=== PATIENT | female | born 1970 | race Caucasian/White ===

== ENCOUNTER 2018-05-29 05:05 | Day surgery (SDC) | payer OTHER ==
[2018-05-25 16:47] VITALS: BMI 38.6
[2018-05-29] MEDS ORDERED: PROPOFOL 20 ML ONE ×3 (09:22→09:43)
[2018-05-29] MEDS ORDERED: MIDAZOLAM HCL 2 MG/2 ML SINGLE DOSE VIAL ONE (09:23)
[2018-05-29] MEDS ORDERED: LIDOCAINE HCL/PF 2% SDV 5ML VIAL ONE (09:24)
--- NOTE | 2018-05-29 09:32 | HP ---
History & Physical Update - History History: No Change (h&P reviwed , no changes for hysteroscopy D&C polypectomy) - Physical Physical: No Change - Assessment Assessment: No Change - Plan Plan: No Change
[2018-05-29] MEDS ORDERED: oxyCODONE HCL 5 MG TABLET PO PRN ×2 (09:34→10:12)
[2018-05-29] MEDS ORDERED: IBUPROFEN 800 MG/8 ML IJ IVPB PRN (09:34)
[2018-05-29] MEDS ORDERED: ONDANSETRON 4 MG/2 ML VIAL IVPUSH PRN ×2 (09:34→10:12)
[2018-05-29] MEDS ORDERED: IBUPROFEN 600 MG TABLET (FP) PO PRN (09:34)
[2018-05-29] MEDS ORDERED: ELECTROLYTE-148 SOLN 1,000 ML IV SCH (09:45)
[2018-05-29] MEDS ORDERED: DEXAMETHASONE SOD PHOSPHATE 4 MG/1 ML VIAL ONE (09:46)
[2018-05-29] MEDS ORDERED: KETOROLAC TROMETHAMINE 30 MG/1 ML VIAL ONE (10:01)
[2018-05-29] MEDS ORDERED: PROMETHAZINE HCL 25 MG/1 ML VIAL IVPUSH PRN (10:12)
[2018-05-29] MEDS ORDERED: LACTATED RINGERS SOLUTION 1,000 ML IV SCH (10:15)
[2018-05-29 11:07] VITALS: TEMP 98
--- NOTE | 2018-05-29 11:48 | OP ---
DATE OF OPERATION: 05/29/2018 PREOPERATIVE DIAGNOSIS: Menometrorrhagia, endometrial polyp. POSTOPERATIVE DIAGNOSIS: Menometrorrhagia, endometrial polyp. PROCEDURE: Hysteroscopy, dilation and curettage, and polypectomy. SURGEON: Leandro Shell MD ANESTHESIA: General anesthesia, Ney Manriquez MD. ESTIMATED BLOOD LOSS: 25 mL. DESCRIPTION OF PROCEDURE: Patient was taken to the operating room. Under adequate general anesthesia in the lithotomy position, examination under anesthesia revealed the external genitalia to be normal. There was a cystocele. The cervix was clean, no gross lesion. Uterus was normal sized. Adnexa, no masses were palpable. Then with the weighted speculum in the vagina, anterior lip of cervix was grasped with single-tooth tenaculum. Cervix was slightly dilated with Hegar dilator. Hysteroscope was introduced. Visualization of endocervical canal appeared to be normal. Endometrium was visualized. Hysteroscope was further introduced into the uterine cavity, and both cornu regions of the uterus were identified and tubal ostia were visualized. There were 2 polyps in the lower uterine segment approximately 1-2 cm. The endometrium was irregular, with patchy endometrial growth. No submucous myoma noted. Then the polyps were removed, and then then D&C was done. Patient tolerated the procedure well, left the OR in good condition. LEANDRO SHELL M.D. [id number]
[2018-05-29 12:29] VITALS: BP 117/75; PULSE 81
--- NOTE | 2018-05-30 15:14 | PATH ---
Surgical Pathology Report Patient Name: AMA SÁNCHEZ [facility]. Rec. #: [id number] /Age/Gender: 1970 (Age: 47) / F Account: [id number] Location: [facility] SURGICAL Taken: 05/29/2018 Received: 05/29/2018 Reported: 05/30/2018 Physicians: Leandro Shell M.D. Specimen(s) Received A: ENDOMETRIUM POLYP B: ENDOMETRIAL CURETTINGS Clinical History Irregular menses, endometrium thickened Final Diagnosis A. ENDOMETRIAL POLYP, POLYPECTOMY: FRAGMENTS OF ENDOMETRIAL POLYP. B. ENDOMETRIAL CURETTINGS, DILATION AND CURETTAGE: FRAGMENTS OF ENDOMETRIAL POLYP, PROLIFERATIVE ENDOMETRIUM, AND SCANT BENIGN CERVICAL TISSUE. Electronically Signed Gissell Goode M.D. Gross Description A. Received in formalin labeled "endometrial polyp" are multiple fragments of pink-mckeon polypoid tissue measuring 3 x 2.5 x 1 cm in aggregate. The entire specimen is submitted in one cassette. B. Received in formalin labeled "endometrial curettings" are multiple fragments of pink-mckeon hemorrhagic tissue measuring 3.5 x 3.5 x 1.5 cm in aggregate. The entire specimen is submitted in 2 cassettes. [facility]/05/29/2018 [facility]/05/29/2018
== END 2018-05-29 12:30 | disposition home or self-care (01) ==
LOC: JASU-SURG 05:05
PROVIDERS: ATTEND Obstetrics & Gynecology
PROC: 0UJD8ZZ Inspection of Uterus and Cervix, Via Natural or Artificial Opening Endoscopic (ICD-10-PCS; 2018-05-29)
PROC: 0UB97ZX Excision of Uterus, Via Natural or Artificial Opening, Diagnostic (ICD-10-PCS; principal; 2018-05-29 10:00)
PROC: 0UDB7ZX Extraction of Endometrium, Via Natural or Artificial Opening, Diagnostic (ICD-10-PCS; 2018-05-29 10:00)
DX: N92.1 Excessive and frequent menstruation with irregular cycle (principal); N84.0 Polyp of corpus uteri
CPT/HCPCS: 84703; 88305-TC; 94760

== ENCOUNTER 2018-08-12 08:20 | Emergency (ER) | payer OTHER ==
[2018-08-12 08:30] VITALS: BMI 38.6
[2018-08-12 09:33] LABS: BASO % 0.9 % (0-2.0); EOS % 0.3 % (0-4.5); HEMATOCRIT 37.9 % (32.4-45.2); HEMOGLOBIN 12.6 GM/dL (10.7-15.3); LYMPH % 7.2 % (8-40); MCH 27.7 pg (25.7-33.7); MCHC 33.2 g/dl (32.0-36.0); MEAN CELL VOLUME 83.5 fl (80-96); MEAN PLT VOLUME 8.5 fl (7.5-11.1); MONO % 3.5 % (3.8-10.2); NEUT % 88.1 % (42.8-82.8); PLATELET COUNT 284 K/MM3 (134-434); RBC 4.54 M/mm3 (3.60-5.2); RDW 14.1 % (11.6-15.6); WHITE BLOOD COUNT 9.1 K/mm3 (4.0-10.0)
[2018-08-12 09:47] LABS: INR 1.07 (0.83-1.09); PROTHROMBIN TIME (PATIENT) 12.6 SEC (9.7-13.0)
[2018-08-12 09:50] LABS: ALBUMIN 3.7 g/dl (3.4-5.0); ALK PHOS 68 U/L (45-117); ANION GAP 5 MMOL/L (8-16); BILIRUBIN,TOTAL 0.5 mg/dL (0.2-1); BLOOD UREA NITROGEN 10 mg/dL (7-18); CALCIUM 8.9 mg/dL (8.5-10.1); CHLORIDE 107 mmol/L (98-107); CO2 27 mmol/L (21-32); CREATININE 0.7 mg/dL (0.55-1.3); GLUCOSE,RANDOM 110 mg/dL (74-106); POTASSIUM 3.9 mmol/L (3.5-5.1); SGOT/AST 9 U/L (15-37); SGPT/ALT 17 U/L (13-61); SODIUM 138 mmol/L (136-145); TOT PROT 7.5 g/dl (6.4-8.2)
--- NOTE | 2018-08-12 10:10 | PDOC ---
Attending Attestation - Resident Resident Name: Aaron Mckeon - ED Attending Attestation I have performed the following: I have examined & evaluated the patient, The case was reviewed & discussed with the resident, I agree w/resident's findings & plan, Exceptions are as noted - HPI HPI: 08/12/18 10:07 48 F with no PMH presents to ED with vaginal bleeding. Pt reports that she had a uterine polyp removed by Dr. Shell recently. She had persistent spotting afterwards and was started on medroxyprogesterone, which she finished 4 days ago. Since stopping the medication, she has had increased bleeding, about 4 pads per day. Denies any abdominal pain. Denies lightheadedness/dizziness/CP/SOB /palpitations. Pt reports she is concerned she is becoming anemic because of the bleeding. - Physicial Exam PE: 08/12/18 10:08 GENERAL: Awake, alert, and fully oriented, in no acute distress. HEAD: No signs of trauma EYES: PERRLA, EOMI, sclera anicteric, conjunctiva clear ENT: Auricles normal inspection, hearing grossly normal, nares patent, oropharynx clear without exudates. Moist mucosa NECK: Nontender, no stepoffs, Normal ROM, supple, no lymphadenopathy, JVD, or masses LUNGS: Breath sounds equal, clear to auscultation bilaterally. No wheezes, and no crackles HEART: Regular rate and rhythm, normal S1 and S2, no murmurs, rubs or gallops ABDOMEN: Soft, nontender, normoactive bowel sounds. No guarding, no rebound. No masses EXTREMITIES: Normal range of motion, no edema. No clubbing or cyanosis. No cords, erythema, or tenderness NEUROLOGICAL: Cranial nerves II through XII intact. 5/5 strength and sensation in all extremities, Normal speech, normal gait, normal cerebellar function SKIN: Warm, Dry, normal turgor, no rashes or lesions noted. : Pt refused - Medical Decision Making 08/12/18 10:08 48 F with vaginal bleeding x 4 days. Pt well appearing. Will r/o anemia. Pt refused pelvic exam, but low suspicion for acute pelvic pathology as pt without pain, benign abdominal exam. - Labs 08/12/18 10:10 Labs wnl CBC stable since prior in 05/2018 Repeat HR 90 Pt states that she has a high resting heart rate and admits to feeling very anxious in ED. Pt is well appearing, with normal vitals. Clinically stable for DC at this time. I discussed the physical exam findings, ancillary test results and final diagnoses with the patient. I answered all of the patient's questions. The patient was satisfied with the care received and felt comfortable with the discharge plan and treatment plan. The patient agrees to follow up with the primary care physician within 24-72 hours.
--- NOTE | 2018-08-12 10:18 | PDOC ---
History of Present Illness - General Chief Complaint: Vaginal Bleeding Stated Complaint: VAGINAL BLEED Time Seen by Provider: 08/12/18 09:35 - History of Present Illness Initial Comments: The pt is a 48F w/ no reported PMH who presents for evaluation of persistent vaginal bleeding. The patient reports irregular menses since April. At that time the pt was found to have a uterine polyp which was removed in May. Since then her menses have not returned to her baseline. She notes that she has had approximately 1 month of persistent bleeding/spotting. She was seen by Dr. Zaldivar and was given Lupron which she took for 8 days. She stopped this past and since then has had heavy menses. She reports that she was told this could happen, but is concerned because of how long it has been going on for. Of note, she was evaluated for uterine cancer at the time of her uterine polypectomy and her biopsy was negative. Denies fevers/chills, lightheadedness, dizziness, vision changes, chest pain, SOB, abdominal pain/cramping, N/V/C/D, dysuria, hematuria, or blood in her stool. 08/12/18 10:20 Past History - Past Medical History Allergies/Adverse Reactions: Allergies Allergy/AdvReac Type Severity Reaction Status Date / Time No Known Allergies Allergy Verified 08/15/18 14:03 Home Medications: Ambulatory Orders Acetaminophen [Tylenol -] 500 mg PO PRN 08/13/18 COPD: No - Reproductive History Is Patient Now?: No - Suicide/Smoking/Psychosocial Hx Smoking History: Never smoked Hx Alcohol Use: No Drug/Substance Use Hx: No Substance Use Type: None Review of Systems - Review of Systems Able to Perform ROS?: Yes Comments:: GENERAL/CONSTITUTIONAL: No fever or chills. No weakness HEAD, EYES, EARS, NOSE AND THROAT: No change in vision. No ear pain or discharge. No sore throat CARDIOVASCULAR: No chest pain or shortness of breath RESPIRATORY: Denies cough, hemoptysis GASTROINTESTINAL: No nausea, vomiting, diarrhea or constipation GENITOURINARY: No dysuria, frequency, or change in urination MUSCULOSKELETAL: No joint or muscle swelling or pain. No neck or back pain SKIN: No rash NEUROLOGIC: No headache, vertigo, loss of consciousness, or change in strength/ sensation ENDOCRINE: No increased thirst. No abnormal weight change HEMATOLOGIC/LYMPHATIC: No anemia, easy bleeding, or history of blood clots ALLERGIC/IMMUNOLOGIC: No hives or skin allergy 08/12/18 10:11 Is the patient limited Azerbaijani proficient: No *Physical Exam - Vital Signs Last Vital Signs Temp Pulse Resp BP Pulse Ox 98.4 F 107 H 18 132/87 99 08/12/18 08:21 08/12/18 08:21 08/12/18 08:21 08/12/18 08:21 08/12/18 08:21 - Physical Exam Comments: GENERAL: Awake, alert, and oriented to person/place/time, in no acute distress HEAD: No signs of trauma, normocephalic, atraumatic EYES: PERRLA, EOMI, sclera anicteric, conjunctiva clear ENT: Hearing grossly normal, nares patent, oropharynx clear without exudates. Moist mucosa LUNGS: No distress, speaks full sentences, clear to auscultation bilaterally HEART: Regular rate and rhythm, normal S1 and S2, no murmurs appreciated, peripheral pulses normal and equal bilaterally ABDOMEN: Soft, nontender, normoactive bowel sounds. No guarding, no rebound EXTREMITIES: Normal inspection, Normal range of motion, no edema. No clubbing or cyanosis NEUROLOGICAL: Cranial nerves II through XII grossly intact. Normal speech, normal gait, no focal sensorimotor deficits SKIN: Warm, Dry 08/12/18 10:19 ED Treatment Course - LABORATORY CBC & Chemistry Diagram: 08/12/18 07:17 08/12/18 07:17 - ADDITIONAL ORDERS Additional order review: Laboratory Results 08/12/18 08/12/18 07:17 07:17 PT with INR 12.60 INR 1.07 Sodium 138 Potassium 3.9 Chloride 107 Carbon Dioxide 27 Anion Gap 5 L BUN 10 Creatinine 0.7 Creat Clearance w eGFR 88.57 Random Glucose 110 H Calcium 8.9 Total Bilirubin 0.5 AST 9 L ALT 17 Alkaline Phosphatase 68 Total Protein 7.5 Albumin 3.7 08/12/18 07:17 RBC 4.54 MCV 83.5 MCHC 33.2 RDW 14.1 MPV 8.5 Neutrophils % 88.1 H D Lymphocytes % 7.2 L D Monocytes % 3.5 L Eosinophils % 0.3 Basophils % 0.9 Medical Decision Making - Medical Decision Making The pt is a 48F who presents for evaluation for AUB for approx 1 month w/ associated symptoms of anemia ED Course Lab sent Hgb at baseline Serum preg neg Pt scheduled appointment w/ Dr. Zaldivar tomorrow Plan for D/C w/ [facility] f/u Discharge instructions and return precautions given Pt in agreement and verbalized understanding Dispo: home *DC/Admit/Observation/Transfer Diagnosis at time of Disposition: Menometrorrhagia - Discharge Dispostion Disposition: HOME Condition at time of disposition: Stable Decision to Admit order: No - Referrals Referrals: Leandro Shell MD [Staff Physician] - - Patient Instructions Printed Discharge Instructions: DI for Menorrhagia Additional Instructions: You were seen in the Emergency Department for evaluation of irregular vaginal bleeding. Your hemoglobin was at baseline, and your other labs were unremarkable. Please review the handout provided at discharge. Follow up with Dr. Shell. Return to the Emergency Department if you develop fevers/chills, lightheadedness, dizziness, nausea/vomiting, abdominal pain, pain with urination , blood in your stool, worsening symptoms, or any new/concerning symptoms. - Post Discharge Activity Forms/Work/School Notes: Back to Work
[2018-08-12 12:35] VITALS: BP 130/70; PULSE 82; TEMP 98.3
== END 2018-08-12 10:30 | disposition home or self-care (01) ==
LOC: JER 08:20
DX: N92.1 Excessive and frequent menstruation with irregular cycle (principal)
CPT/HCPCS: 36415; 80053; 84703; 85025; 85610; 86850; 86900; 86901; 99283-25

== ENCOUNTER 2018-08-14 09:13 | Day surgery (SDC) | payer OTHER ==
[2018-08-13 11:56] VITALS: BMI 38.6
[2018-08-14 09:40] VITALS: BP 130/87; PULSE 98; TEMP 97.6
[2018-08-14 12:09] LABS: HEMATOCRIT 33.5 % (32.4-45.2); HEMOGLOBIN 11.1 GM/dL (10.7-15.3); MCH 27.6 pg (25.7-33.7); MCHC 33.1 g/dl (32.0-36.0); MEAN CELL VOLUME 83.4 fl (80-96); MEAN PLT VOLUME 8.1 fl (7.5-11.1); PLATELET COUNT 264 K/MM3 (134-434); RBC 4.02 M/mm3 (3.60-5.2); RDW 14.2 % (11.6-15.6)
== END 2018-08-14 12:48 | disposition home or self-care (01) ==
LOC: JASU-SURG 09:13
PROVIDERS: ATTEND Obstetrics & Gynecology
PROC: 0U5B8ZZ Destruction of Endometrium, Via Natural or Artificial Opening Endoscopic (ICD-10-PCS; principal; 2018-08-14)
PROC: 0UDB8ZX Extraction of Endometrium, Via Natural or Artificial Opening Endoscopic, Diagnostic (ICD-10-PCS; 2018-08-14)
DX: N92.1 Excessive and frequent menstruation with irregular cycle (principal)
CPT/HCPCS: 36415; 85027

== ENCOUNTER 2018-08-16 12:22 | Day surgery (SDC) | payer OTHER ==
[2018-08-15 14:03] VITALS: BMI 38.6
[2018-08-16 12:54] VITALS: TEMP 98
[2018-08-16] MEDS ORDERED: LIDOCAINE HCL/PF 2% SDV 5ML VIAL ONE (13:57)
[2018-08-16] MEDS ORDERED: MIDAZOLAM HCL 2 MG/2 ML SINGLE DOSE VIAL ONE (13:57)
[2018-08-16] MEDS ORDERED: PROPOFOL 20 ML ONE (13:57)
--- NOTE | 2018-08-16 14:04 | HP ---
History & Physical Update - Physical Physical: No Change - Assessment Assessment: No Change - Plan Plan: No Change (H&P reviwed ,no changes, for hysteroscopy thermoablation)
[2018-08-16] MEDS ORDERED: ONDANSETRON 4 MG/2 ML VIAL IVPUSH PRN (14:07)
[2018-08-16] MEDS ORDERED: IBUPROFEN 600 MG TABLET (FP) PO PRN (14:07)
[2018-08-16] MEDS ORDERED: IBUPROFEN 800 MG/8 ML IJ IVPB PRN (14:07)
[2018-08-16] MEDS ORDERED: oxyCODONE HCL 5 MG TABLET PO PRN (14:07)
[2018-08-16] MEDS ORDERED: ELECTROLYTE-148 SOLN 1,000 ML IV SCH (14:15)
[2018-08-16] MEDS ORDERED: DEXAMETHASONE SOD PHOSPHATE 4 MG/1 ML VIAL ONE (14:19)
[2018-08-16] MEDS ORDERED: KETOROLAC TROMETHAMINE 30 MG/1 ML VIAL ONE (14:20)
[2018-08-16] MEDS ORDERED: LACTATED RINGERS SOLUTION 1,000 ML IV SCH (15:00)
[2018-08-16] MEDS ORDERED: ACETAMINOPHEN INJECTION 100 ML IVPB ONE (15:47)
[2018-08-16] MEDS ORDERED: ACETAMINOPHEN 1000 MG/100 ML VIAL (NON FORMULARY) IVPB ONE (15:49)
[2018-08-16 18:06] VITALS: BP 123/81; PULSE 90
--- NOTE | 2018-08-16 21:23 | OP ---
DATE OF OPERATION: 08/16/2018 PREOPERATIVE DIAGNOSIS: Menometrorrhagia. POSTOPERATIVE DIAGNOSIS: Menometrorrhagia. PROCEDURE: Hysteroscopy, hydrothermal ablation. SURGEON: Leandro Shell MD ANESTHESIA: General. ANESTHESIOLOGIST: Nora Bloom MD ESTIMATED BLOOD LOSS: Minimal. DESCRIPTION OF OPERATIVE PROCEDURE: Patient was taken to the operating room. Under adequate general anesthesia in dorsal lithotomy position, examination under anesthesia revealed the external genitalia to be normal. Vagina was normal. Cervix was clean. No lesion. Uterus slightly enlarged, globular. No masses were felt. Adnexa: No masses were palpable. Then, with a weighted speculum in the vagina, anterior lip of the cervix was grasped with single-tooth tenaculum. Then, uterine cavity was sounded to 8 cm. Then, cervix was slightly dilated, and hysteroscope was introduced. Both cornual regions were identified. Endometrium was irregular and thick. At this time, the D&C was done. Then, hydroablation started without any leakage. Patient tolerated the procedure well, left the OR in good condition. LEANDRO SHELL M.D. [id number]
--- NOTE | 2018-08-20 18:48 | PATH ---
Surgical Pathology Report Patient Name: AMA SÁNCHEZ [facility]. Rec. #: [id number] /Age/Gender: 1970 (Age: 48) / F Account: [id number] Location: [facility] SURGICAL Taken: 08/16/2018 Received: 08/17/2018 Reported: 08/20/2018 Physicians: Leandro Shell M.D. Specimen(s) Received ENDOMETRIAL CURETTINGS Clinical History Irregular menses, menorrhagia Final Diagnosis ENDOMETRIAL CURETTINGS , DILATION AND CURETTAGE: FRAGMENTS OF PROLIFERATIVE ENDOMETRIUM WITH GLANDULAR AND STROMAL BREAKDOWN, PAPILLARY SYNCYTIAL CHANGE, AND BENIGN CERVICAL TISSUE. Electronically Signed Gissell Goode M.D. Gross Description Received in formalin labeled "endometrial curettings," is a 2.3 x 1.5 x 0.3 cm aggregate of mckeon brown soft tissue fragments admixed with blood clot. The formalin is filtered and the specimen is entirely submitted in one cassette. 08/18/2018 [facility]08/18/2018
== END 2018-08-16 18:11 | disposition home or self-care (01) ==
LOC: JASU-SURG 12:22
PROVIDERS: ATTEND Obstetrics & Gynecology
PROC: 0U5B8ZZ Destruction of Endometrium, Via Natural or Artificial Opening Endoscopic (ICD-10-PCS; principal; 2018-08-16 14:00)
PROC: 0UDB7ZX Extraction of Endometrium, Via Natural or Artificial Opening, Diagnostic (ICD-10-PCS; 2018-08-16 14:00)
DX: N92.1 Excessive and frequent menstruation with irregular cycle (principal)
CPT/HCPCS: 84703; 88305-TC; 94760; J0131